=== PATIENT | male | born 1960 | race Caucasian/White ===

== ENCOUNTER → 2016-05-20 | Outpatient (CLI) | payer OTHER ==
--- NOTE | 2016-05-20 11:08 | DIAGNOSTIC IMAGING REPORT ---
RIGHT WRIST 4 VIEWS CLINICAL HISTORY: Fall several days ago. Right wrist pain. FINDINGS: 4 views of the right wrist are obtained. No prior studies are available for comparison at the time of dictation. The skeletal structures are well mineralized. A small avulsion fracture of the triquetrum is suspected on the lateral view. There is overlying soft tissue edema. No additional acute fracture is clearly seen. There is chronic appearing/well-corticated deformity at the base of the ulnar styloid, likely related to remote trauma. IMPRESSION: 1. Suspected a small acute avulsion fracture of the triquetrum, only seen on the lateral view. There is overlying soft tissue edema. 2. There is chronic appearing posttraumatic change identified at the base of the ulnar styloid. Correlate with the patient's medical history and for point tenderness at this site. Electronically signed by: Simón Carpenter M.D. 05/20/2016 11:06 AM Dictated Date/Time: 05/20/2016 11:04 AM
== END | disposition home or self-care (01) ==
LOC: C.RAD 10:32
PROVIDERS: ATTEND Family Medicine
DX: M25.531 Pain in right wrist (principal)

== ENCOUNTER → 2016-06-19 | Outpatient (CLI) | payer OTHER ==
--- NOTE | 2016-06-19 11:56 | DIAGNOSTIC IMAGING REPORT ---
ULTRASOUND OF THE CAROTID ARTERIES CLINICAL HISTORY: Headache, change in level of consciousness. Facial paresthesias. COMPARISON STUDY: None. TECHNIQUE: Real-time, grayscale, and color Doppler sonography of the carotid arteries was performed. Imaging reviewed in the transverse and longitudinal planes. NASCET criteria was utilized for stenosis calcification. FINDINGS: There is minimal atherosclerotic plaque present . The peak systolic velocity within the right internal carotid artery is 73 cm/sec. The systolic velocity ratio of right internal to common carotid artery is 0.8. The peak systolic velocity within the left internal carotid artery is 97 cm/sec. The systolic velocity ratio left internal to common carotid artery is 0.9. Antegrade flow is seen in the vertebral arteries. The external carotid arteries are patent. Blood pressure in the right arm measured 143 mm/Hg. Blood pressure in the left arm measured 138 mm/Hg. IMPRESSION: No evidence of hemodynamically significant carotid stenosis. Electronically signed by: Florencio Sotomayor M.D. 06/19/2016 11:55 AM Dictated Date/Time: 06/19/2016 11:54 AM
== END | disposition home or self-care (01) ==
LOC: C.ULTR 11:07
PROVIDERS: ATTEND Family Medicine
DX: R51 Headache (principal); R41.0 Disorientation, unspecified; R20.2 Paresthesia of skin

== ENCOUNTER → 2016-06-23 | Outpatient (CLI) | payer OTHER ==
[~2016-06-23] MED LIST: GADAVIST IV PRN
--- NOTE | 2016-06-23 16:22 | DIAGNOSTIC IMAGING REPORT ---
Brain MRI WITH AND WITHOUT CONTRAST HISTORY: Frontal headaches. Right facial paresthesia. TECHNIQUE: Multiplanar multisequence MRI of the brain was performed both before and after the intravenous administration of contrast. COMPARISON STUDY: None. FINDINGS: There are no areas of restricted diffusion to suggest acute infarction. Small retention cysts within the right maxillary sinus. Incidental note is made of a partially empty sella. The mastoid air cells are clear. The ventricles and sulci are within normal limits for age. There is no mass, hematoma, midline shift. The major vascular flow-voids at the skull base are well maintained. Postcontrast sequences show no areas of abnormal enhancement. IMPRESSION: No acute intracranial abnormality. Electronically signed by: Demetrius Palmer M.D. 06/23/2016 4:20 PM Dictated Date/Time: 06/23/2016 4:11 PM
== END | disposition home or self-care (01) ==
LOC: C.MRI 14:48
PROVIDERS: ATTEND Family Medicine
DX: R51 Headache (principal); R41.0 Disorientation, unspecified; R20.2 Paresthesia of skin

== ENCOUNTER → 2016-06-27 | Outpatient (CLI) | payer OTHER ==
[~2016-06-27] MED LIST changes: -GADAVIST IV PRN; +PERFLUTREN LIPID MICROSPHERE (DEFINITY) IV ONE
--- NOTE | 2016-06-27 19:01 | ECHOCARDIOGRAM REPORT ---
*NOTICE TO RECEIVING [employer] This information is strictly Confidential and protected under [place] law. [place] law prohibits you from making any further disclosure of this information unless further disclosure is expressly permitted by the written consent of the person to whom it pertains or is authorized by law. A general authorization for the release of medical or other information is not sufficient for this purpose. Hospital accepts no responsibility if the information is made available to any other person, INCLUDING THE PATIENT. Interpretation Summary * Name: RAI GALLO Study Date: 06/27/2016 12:36 PM * Patient Location: [facility] HR: 83 * : 1960 (M/d/yyyy) Gender: Male Height: 68 in * Age: 55 yrs Ethnicity: [place] Weight: 245 lb * Ordering Physician: Elsy Leroy * Referring Physician: Elsy Leroy PA-C * Performed By: Jocelyn Lei RDCS * * Reason For Study: Clouded consciousness, headache, facial paresthesia * BSA: 2.2 m2 * Normal biventricular systolic function. * Normal chamber dimensions. * Trace aortic regurgitation. * Left ventricular diastolic dysfunction. * No cardiac source of emboli noted. Procedure Details * A complete two-dimensional transthoracic echocardiogram was performed (2D, M-mode, Doppler and color flow Doppler). * A saline contrast injection was performed to assess for cardiac shunting. * The injection was performed through an intravenous line in the right arm. * A total of 30 cc of agitated saline was given. * A contrast injection of Definity was performed to improve assessment of LV function. * Contrast was injected into an intravenous site in the right arm. * One vial of Definity ultrasound contrast was diluted in normal saline to a total volume of 10 ml. A total of '2' ml of solution was administered during imaging. * Lot # [id number] of Definity utilized for procedure. * Expiration date 1 JUN 27. * The attending nurse who injected the contrast agent was Chiquita Waller RN. Left Ventricle * The left ventricle is normal in size. * There is no thrombus. * There is normal left ventricular wall thickness. * Ejection Fraction = 55-60%. * A full diastolic examination was done with clinical findings of Class I diastolic dysfunction. * The left ventricular wall motion is normal. Right Ventricle * The right ventricle is normal in size and function. Atria * The left atrial size is normal. * Right atrial size is normal. * Injection of contrast documented no interatrial shunt. Mitral Valve * The mitral valve is normal. * There is no mitral valve stenosis. * There is no mitral regurgitation noted. Tricuspid Valve * The tricuspid valve is normal. * There is no tricuspid stenosis. * No tricuspid regurgitation. Aortic Valve * The aortic valve is trileaflet. * The aortic valve opens well. * Aortic stenosis is absent. * Trace aortic regurgitation. Pulmonic Valve * The pulmonic valve is not well seen, but is grossly normal. * Pulmonic stenosis is absent. * There is no pulmonic valvular regurgitation. Great Vessels * The aortic root is normal size. Pericardium/Pleural * There is no pericardial effusion. Great Vessels * Normal inferior vena cava diameter and respiratory variation suggests normal central venous pressure. MMode 2D Measurements and Calculations IVSd 1.0 cm LVIDd 4.4 cm LVIDs 3.3 cm LVPWd 1.1 cm IVS/LVPW 0.88 FS 25.9 % EDV(Teich) 89.6 ml ESV(Teich) 43.8 ml EF(Teich) 51.2 % EDV(cubed) 87.6 ml ESV(cubed) 35.6 ml EF(cubed) 59.4 % LV mass(C)d 164.6 grams LV mass(C)dI 73.9 grams/m\S\2 CO(Teich) 3.6 l/min CI(Teich) 1.6 l/min/m\S\2 SV(Teich) 45.8 ml SI(Teich) 20.6 ml/m\S\2 CO(cubed) 4.1 l/min CI(cubed) 1.8 l/min/m\S\2 SV(cubed) 52.0 ml SI(cubed) 23.3 ml/m\S\2 Ao root diam 3.8 cm Ao root area 11.3 cm\S\2 ACS 2.2 cm asc Aorta Diam 3.7 cm LVOT diam 2.0 cm LVOT area 3.2 cm\S\2 LVAd ap4 29.0 cm\S\2 LVLd ap4 8.5 cm EDV(MOD-sp4) 81.0 ml LVAs ap4 17.5 cm\S\2 LVLs ap4 7.1 cm ESV(MOD-sp4) 35.0 ml EF(MOD-sp4) 56.8 % LVAd ap2 27.6 cm\S\2 LVLd ap2 8.3 cm EDV(MOD-sp2) 79.9 ml LVAs ap2 18.7 cm\S\2 LVLs ap2 7.1 cm ESV(MOD-sp2) 41.6 ml EF(MOD-sp2) 47.9 % CO(MOD-sp4) 3.6 l/min CI(MOD-sp4) 1.6 l/min/m\S\2 SV(MOD-sp4) 46.0 ml SI(MOD-sp4) 20.6 ml/m\S\2 CO(MOD-sp2) 3.0 l/min CI(MOD-sp2) 1.3 l/min/m\S\2 SV(MOD-sp2) 38.3 ml SI(MOD-sp2) 17.2 ml/m\S\2 Doppler Measurements and Calculations MV E max guzman 68.9 cm/sec MV A max guzman 93.6 cm/sec MV E/A 0.74 MV dec time 0.42 sec Ao V2 max 121.6 cm/sec Ao max PG 5.9 mmHg Ao max PG (full) 2.0 mmHg ROSE MARY(V,A) 2.6 cm\S\2 ROSE MARY(V,D) 2.6 cm\S\2 AI max guzman 292.1 cm/sec AI max PG 34.1 mmHg AI dec slope 116.8 cm/sec\S\2 AI P1/2t 732.7 msec LV V1 max PG 4.0 mmHg LV V1 max 99.4 cm/sec PA V2 max 114.0 cm/sec PA max PG 5.2 mmHg PA acc slope 401.3 cm/sec\S\2 PA acc time 0.16 sec PA pr(Accel) 6.1 mmHg
== END | disposition home or self-care (01) ==
LOC: C.CPL 12:22
PROVIDERS: ATTEND Family Medicine
DX: R51 Headache (principal); R41.0 Disorientation, unspecified; R20.2 Paresthesia of skin

== ENCOUNTER → 2016-07-10 | Outpatient (CLI) | payer OTHER ==
--- NOTE | 2016-07-10 17:31 | EEG Procedure Note ---
EEG Procedure Note Date of Service Jul 10, 2016. Start / End Times Start Time: 2:30 PM End Time: 2:50 p.m. Referring Physician SAUD Reed History This is a 55-year-old male with altered mental status. EEG for further evaluation of possible seizure etiology patient does not know his home medications. Home Medication List No Active Prescriptions or Reported Meds Description This is a 21 electrode EEG with a single channel dedicated to limited EKG. The electrodes were placed in accordance with the International 10-20 system. At the start of the recording the patient was in an awake state. Background was well organized and composed of symmetric mixed alpha and beta frequencies. There was a symmetric well-formed moderate amplitude 8-9 Hz posterior dominant rhythm that was reactive to eye opening and closure. Hyperventilation was not done. Intermittent photic stimulation at various frequencies produced no abnormalities. Drowsiness was indicated by slowing of the background rhythm and vertex waves. There was no stage II sleep transients. Interpretation This is a normal awake and drowsy routine EEG. There was no electrographic seizures or epileptiform discharges. Clinical Correlation A normal EEG does not rule out epilepsy if there is a strong clinical suspicion.
== END | disposition home or self-care (01) ==
LOC: C.NEUR 13:43
PROVIDERS: ATTEND Family Medicine
DX: R41.0 Disorientation, unspecified (principal)